=== PATIENT | female | born 1965 | race Caucasian/White ===

== ENCOUNTER 2022-05-31 03:23 | Inpatient (IN) | payer SELFPAY ==
[2022-05-31] MEDS ORDERED: hydrALAZINE 20 MG/ML VIAL SLOW IVP PRN (05:32)
[2022-05-31 05:44] VITALS: BMI 25.2
[2022-05-31] MEDS ORDERED: Ondansetron PF 4 MG/2 ML Vial IVP PRN (10:55)
[2022-05-31] MEDS ORDERED: Guaifenesin DM 100-10/5 ML UDCUP PO PRN (10:55)
[2022-05-31] MEDS ORDERED: Acetaminophen 325 MG TAB PO PRN (10:55)
[2022-05-31] MEDS ORDERED: Calcium Carbonate 500 MG ChewTAB PO PRN (10:55)
[2022-05-31] MEDS ORDERED: Bisacodyl 10 MG SUPP PR PRN (10:55)
[2022-05-31] MEDS: Sodium Chloride 0.9% 1,000 ML IV SCH (11:39)
[2022-05-31] MEDS ORDERED: Morphine 2 MG/ML VIAL SLOW IVP PRN (11:57)
[2022-05-31] MEDS ORDERED: Dicyclomine 20 MG TAB PO PRN (11:57)
[2022-05-31 15:06] LABS: Syphilis Antibody Nonreactive (Nonreactive); Syphilis Antibody Index 0.04 S/CO (<1.00 Non-Reactive)
[2022-05-31] MEDS ORDERED: GoLYTELY 4,000 ml Bottle PO SCH (15:30)
[2022-05-31 15:37] LABS: HIV (1/2) Antibody/Antigen Non-Reactive (NonReactive); HIV 1/2 INDEX 0.16 S/CO (<1.00); Hep B Surf Ag Non-Reactive S/CO (NonReactive)
[2022-05-31 16:11] LABS: HBCM Index 1.48 S/CO (0-0.79); Hep A IgM S/CO 0.85 S/CO (0-0.79); Hep C IgG Ab Reflex HepC Qnt (NonReactive); Hep C Index 3.32 S/CO (0-0.79); Hepatitis B Core IgM Abs Reactive (NonReactive)
[2022-05-31 16:12] LABS: Hep A IgM AB Equivocal (NonReactive)
[2022-05-31] MEDS: Nicotine 14 MG PATCH TOP SCH (17:35)
[2022-05-31 19:11] LABS: Amphetamine Detected (NotDetected); Barbiturates Screen Not Detected (NotDetected); Benzodiazepine Screen Detected (NotDetected); Cocaine Metabolite Screen Not Detected (NotDetected); Methadone Not Detected (NotDetected); Methamphetamine Detected (NotDetected); Opiate Screen Not Detected (NotDetected); Oxycodone Screen Not Detected (NotDetected); Phencyclidine (PCP) Not Detected (NotDetected); THC/Cannabinoid Screen Not Detected (NotDetected); Tricyclic Screen Not Detected (NotDetected)
[2022-05-31] MEDS: Senokot S 8.6-50 MG TAB PO SCH (21:22)
[2022-05-31] MEDS: Atorvastatin Calcium 40 MG TAB PO SCH (21:22)
[2022-06-01] MEDS ORDERED: Metoprolol Tartrate 5 MG/5 ML VIAL IVP PRN (00:49)
[2022-06-01 04:56] LABS: Anion Gap 12 mmol/L (10-20); BUN (Urea Nitrogen) 8 mg/dL (9.8-20.1); Calc. Creatinine Clearance 109 mL/min (70-130); Calcium 8.6 mg/dL (7.8-10.44); Carbon Dioxide 24 mmol/L (22-29); Chloride 107 mmol/L (98-107); Cholesterol 140 mg/dl (< 200 Desired); Estimated GFR 105; Glucose 82 mg/dL (70-105); HDL Cholesterol 47 mg/dL (>60 Neg Risk); Iron 22 ug/dL (50-170); Iron Binding Capacity, Total 414 mcg/dL (265-497); LDL Cholesterol, Calculated 76 mg/dL; Potassium 3.8 mmol/L (3.5-5.1); Sodium 139 mmol/L (136-145); Triglycerides 83 mg/dL (Less than 150)
[2022-06-01 05:28] LABS: #Eosinphils 0.5 thou/uL (0.0-0.7); #Lymphocytes 1.9 thou/uL (1.20-3.40); #Monocytes 0.5 thou/uL (0.11-0.59); %Basophils 0.5 % (0.0-1.0); %Eosinophils 9.1 % (0.0-10.0); %Lymphocytes 32.4 % (21.0-51.0); %Monocytes 7.5 % (0.0-10.0); %Neutrophils 50.5 % (42.0-75.0); Hemoglobin 10.2 g/dL (12.0-16.0); MDiff Complete? YES; Mean Corpuscular HGB CONC 31.4 g/dL (32.0-36.0); Mean Corpuscular Hemoglobin 21.8 pg (27.0-31.0); Mean Corpuscular Volume 69.6 fL (78.0-98.0); Mean Platelet Volume 10.8 fL (7.4-10.4); Microcytosis SLIGHT = 6-15 cells (100X) (0-5/hpf); Platelet Count 260 thou/uL (130-400); Platelet Morphology Comment Appears Adequate; RBC Distribution Width 15.2 % (11.5-14.5); Red Blood Cell (RBC) Count 4.66 mill/uL (4.20-5.40)
[2022-06-01] MEDS ORDERED: Labetalol HCl 100 MG/20 ML VIAL ONE ×2 (07:16→07:31)
[2022-06-01] MEDS ORDERED: PROPOFOL 200 MG/20 ML VIAL ONE (07:16)
[2022-06-01] MEDS ORDERED: Midazolam HCl 2 mg/2 ml Vial ONE (07:31)
[2022-06-01] MEDS ORDERED: hydrALAZINE 20 MG/ML VIAL ONE (07:31)
[2022-06-01] MEDS ORDERED: Fentanyl 100 MCG/2 ML VIAL ONE (08:00)
[2022-06-01] MEDS ORDERED: Promethazine HCl 25 MG/ML VIAL IVPB PRN (08:24)
[2022-06-01] MEDS ORDERED: Ondansetron HCl/PF 4 MG/2 ML Vial IVP PRN (08:24)
[2022-06-01] MEDS ORDERED: Promethazine HCl 25 MG/ML VIAL IM PRN (08:24)
[2022-06-01] MEDS: Senokot S 8.6-50 MG TAB PO SCH ×2 (10:45→20:23)
[2022-06-01] MEDS: Amlodipine 10 MG TAB PO SCH (10:45)
[2022-06-01] MEDS: Metoprolol Tartrate 25 MG TAB PO SCH ×2 (10:50→20:23)
[2022-06-01] MEDS: Enoxaparin Sodium 40 MG/0.4 ML SYRINGE SC SCH (10:50)
[2022-06-01] MEDS: Aspirin 81 mg Enteric Coated Tablet PO SCH (10:50)
[2022-06-01] MEDS: Sodium Chloride 0.9% 1,000 ML IV SCH ×2 (10:51→20:24)
[2022-06-01] MEDS: ALPRAZolam 1 MG TAB PO PRN (13:11)
[2022-06-01] MEDS: Nicotine 14 MG PATCH TOP SCH (13:11)
[2022-06-01 13:19] LABS: Campy jejuni + coli by PCR Negative (Negative); STEC Shiga Toxin 1+2 Negative (Negative); Salmonella spp. by PCR Negative (Negative); Shigella spp + EIEC by PCR Negative (Negative)
[2022-06-01] MEDS ORDERED: GoLYTELY 4,000 ml Bottle PO SCH (17:00)
[2022-06-01] MEDS: Atorvastatin Calcium 40 MG TAB PO SCH (20:23)
[2022-06-02] MEDS: ALPRAZolam 1 MG TAB PO PRN ×3 (05:22→20:13)
[2022-06-02] MEDS: Amlodipine 10 MG TAB PO SCH (08:32)
[2022-06-02] MEDS: Metoprolol Tartrate 25 MG TAB PO SCH ×2 (08:32→20:13)
[2022-06-02] MEDS: Enoxaparin Sodium 40 MG/0.4 ML SYRINGE SC SCH (08:34)
[2022-06-02] MEDS: Senokot S 8.6-50 MG TAB PO SCH ×2 (08:34→20:13)
[2022-06-02] MEDS: Aspirin 81 mg Enteric Coated Tablet PO SCH (08:34)
[2022-06-02] MEDS: Nicotine 14 MG PATCH TOP SCH (13:15)
[2022-06-02] MEDS: Sodium Chloride 0.9% 1,000 ML IV SCH (17:16)
[2022-06-02] MEDS: Atorvastatin Calcium 40 MG TAB PO SCH (20:13)
[2022-06-03 06:40] LABS: #Basophils 0.1 thou/uL (0.0-0.2); #Eosinphils 0.6 thou/uL (0.0-0.7); #Monocytes 0.6 thou/uL (0.11-0.59); #Neutrophils 3.4 thou/uL (1.40-6.50); %Basophils 0.9 % (0.0-1.0); %Eosinophils 8.6 % (0.0-10.0); %Lymphocytes 30.6 % (21.0-51.0); %Monocytes 8.6 % (0.0-10.0); %Neutrophils 51.3 % (42.0-75.0); Hemoglobin 10.9 g/dL (12.0-16.0); Mean Corpuscular HGB CONC 30.7 g/dL (32.0-36.0); Mean Corpuscular Hemoglobin 21.9 pg (27.0-31.0); Mean Corpuscular Volume 71.4 fL (78.0-98.0); Mean Platelet Volume 9.9 fL (7.4-10.4); Platelet Count 285 thou/uL (130-400); Red Blood Cell (RBC) Count 4.98 mill/uL (4.20-5.40); White Blood Cell (WBC) Count 6.5 thou/uL (4.8-10.8)
[2022-06-03 07:03] LABS: ALT (SGPT) 11 U/L (8-55); AST (SGOT) 11 U/L (5-34); Albumin 3.4 g/dL (3.5-5.0); Alkaline Phosphatase 83 U/L (40-110); Anion Gap 15 mmol/L (10-20); BUN (Urea Nitrogen) 7 mg/dL (9.8-20.1); Calc. Creatinine Clearance 103 mL/min (70-130); Calcium 8.8 mg/dL (7.8-10.44); Carbon Dioxide 21 mmol/L (22-29); Chloride 106 mmol/L (98-107); Estimated GFR 104; Globulin 3.3 g/dL (2.4-3.5); Glucose 83 mg/dL (70-105); Magnesium 1.9 mg/dL (1.6-2.6); Potassium 3.7 mmol/L (3.5-5.1); Protein, Total 6.7 g/dL (6.0-8.3); Sodium 138 mmol/L (136-145)
[2022-06-03] MEDS ORDERED: Lidocaine 1% PF 5 ML VIAL ONE (08:31)
[2022-06-03] MEDS ORDERED: Labetalol HCl 100 MG/20 ML VIAL ONE (08:31)
[2022-06-03] MEDS ORDERED: PROPOFOL 200 MG/20 ML VIAL ONE (08:31)
[2022-06-03] MEDS ORDERED: Ondansetron HCl/PF 4 MG/2 ML Vial IVP PRN (08:53)
[2022-06-03] MEDS ORDERED: Promethazine HCl 25 MG/ML VIAL IM PRN (08:53)
[2022-06-03] MEDS ORDERED: Promethazine HCl 25 MG/ML VIAL IVPB PRN (08:53)
[2022-06-03] MEDS: Enoxaparin Sodium 40 MG/0.4 ML SYRINGE SC SCH (10:00)
[2022-06-03] MEDS: Aspirin 81 mg Enteric Coated Tablet PO SCH (10:01)
[2022-06-03] MEDS: Senokot S 8.6-50 MG TAB PO SCH ×2 (10:01→21:23)
[2022-06-03] MEDS: Metoprolol Tartrate 25 MG TAB PO SCH ×2 (10:48→21:23)
[2022-06-03] MEDS: Amlodipine 10 MG TAB PO SCH (10:48)
[2022-06-03] MEDS: Nicotine 14 MG PATCH TOP SCH (13:26)
[2022-06-03] MEDS: ALPRAZolam 1 MG TAB PO PRN ×2 (13:31→21:22)
[2022-06-03] MEDS: Atorvastatin Calcium 40 MG TAB PO SCH (21:23)
[2022-06-04 06:57] LABS: #Basophils 0.1 thou/uL (0.0-0.2); #Eosinphils 0.5 thou/uL (0.0-0.7); #Lymphocytes 1.7 thou/uL (1.20-3.40); #Monocytes 0.6 thou/uL (0.11-0.59); #Neutrophils 3.3 thou/uL (1.40-6.50); %Basophils 1.1 % (0.0-1.0); %Eosinophils 8.1 % (0.0-10.0); %Lymphocytes 27.3 % (21.0-51.0); %Monocytes 9.5 % (0.0-10.0); %Neutrophils 53.9 % (42.0-75.0); Mean Corpuscular HGB CONC 31.6 g/dL (32.0-36.0); Mean Corpuscular Hemoglobin 22.4 pg (27.0-31.0); Mean Corpuscular Volume 70.9 fL (78.0-98.0); Mean Platelet Volume 9.9 fL (7.4-10.4); Platelet Count 238 thou/uL (130-400); RBC Distribution Width 14.7 % (11.5-14.5); Red Blood Cell (RBC) Count 4.44 mill/uL (4.20-5.40); White Blood Cell (WBC) Count 6.2 thou/uL (4.8-10.8)
[2022-06-04 07:23] LABS: Anion Gap 13 mmol/L (10-20); BUN (Urea Nitrogen) 12 mg/dL (9.8-20.1); Calc. Creatinine Clearance 107 mL/min (70-130); Calcium 8.3 mg/dL (7.8-10.44); Carbon Dioxide 24 mmol/L (22-29); Chloride 107 mmol/L (98-107); Estimated GFR 104; Glucose 140 mg/dL (70-105); Potassium 3.5 mmol/L (3.5-5.1); Sodium 140 mmol/L (136-145)
[2022-06-04] MEDS: Metoprolol Tartrate 25 MG TAB PO SCH (09:29)
[2022-06-04] MEDS: Enoxaparin Sodium 40 MG/0.4 ML SYRINGE SC SCH (09:29)
[2022-06-04] MEDS: Amlodipine 10 MG TAB PO SCH (09:29)
[2022-06-04] MEDS: Senokot S 8.6-50 MG TAB PO SCH (09:29)
[2022-06-04] MEDS: Aspirin 81 mg Enteric Coated Tablet PO SCH (09:29)
[2022-06-04] MEDS: Nicotine 14 MG PATCH TOP SCH (12:29)
[2022-06-04 16:48] VITALS: BP 144/82; TEMP 98.3
== END 2022-06-04 17:00 | disposition home or self-care (01) | DRG 375 ==
LOC: 2NO 06:14 → OBSVTOIN 10:55 → T4-B 06-01 21:21
PROVIDERS: ADMIT Internal Medicine; ATTEND Internal Medicine
PROC: 0DJ08ZZ Inspection of Upper Intestinal Tract, Via Natural or Artificial Opening Endoscopic (ICD-10-PCS; principal; 2022-06-01)
PROC: 0DBP8ZX Excision of Rectum, Via Natural or Artificial Opening Endoscopic, Diagnostic (ICD-10-PCS; 2022-06-01)
DX: C20 Malignant neoplasm of rectum (principal); I16.1 Hypertensive emergency; G45.9 Transient cerebral ischemic attack, unspecified; Z20.822 Contact with and (suspected) exposure to COVID-19; I10 Essential (primary) hypertension; F41.9 Anxiety disorder, unspecified; D50.9 Iron deficiency anemia, unspecified; F17.210 Nicotine dependence, cigarettes, uncomplicated; K63.5 Polyp of colon; Z98.890 Other specified postprocedural states; Z88.0 Allergy status to penicillin; Z88.1 Allergy status to other antibiotic agents; Z86.73 Personal history of transient ischemic attack (TIA), and cerebral infarction without residual deficits; Z88.2 Allergy status to sulfonamides; B18.2 Chronic viral hepatitis C
CPT/HCPCS: 36415; 70551; 71250; 80048; 80053; 80061; 80074; 80306; 82378; 83540; 83550; 83735; 85025; 86780; 87324; 87389; 87449; 87505; 87522; 88305; 93306; 93880; J0360; J1650; J2250; J2704; J3010; J7050; U0003; U0005

== ENCOUNTER 2022-06-19 21:15 | Emergency (ER) | payer SELFPAY ==
[2022-06-19 22:37] LABS: #Eosinphils 1.1 thou/uL (0.0-0.7); #Lymphocytes 0.6 thou/uL (1.20-3.40); #Monocytes 0.7 thou/uL (0.11-0.59); #Neutrophils 5.7 thou/uL (1.40-6.50); %Basophils 0.5 % (0.0-1.0); %Eosinophils 13.5 % (0.0-10.0); %Lymphocytes 7.4 % (21.0-51.0); %Monocytes 8.3 % (0.0-10.0); %Neutrophils 70.3 % (42.0-75.0); Mean Corpuscular HGB CONC 32.9 g/dL (32.0-36.0); Mean Corpuscular Hemoglobin 22.8 pg (27.0-31.0); Mean Corpuscular Volume 69.2 fL (78.0-98.0); Mean Platelet Volume 11.4 fL (7.4-10.4); Platelet Count 268 thou/uL (130-400); RBC Distribution Width 15.4 % (11.5-14.5); Red Blood Cell (RBC) Count 4.83 mill/uL (4.20-5.40); White Blood Cell (WBC) Count 8.2 thou/uL (4.8-10.8)
[2022-06-19] MEDS ORDERED: Acetaminophen 325 MG TAB ONE (22:37)
[2022-06-19 22:57] LABS: ALT (SGPT) 219 U/L (8-55); AST (SGOT) 113 U/L (5-34); Albumin 3.7 g/dL (3.5-5.0); Alkaline Phosphatase 285 U/L (40-110); Anion Gap 18 mmol/L (10-20); BUN (Urea Nitrogen) 15 mg/dL (9.8-20.1); Bilirubin, Total 2.5 mg/dL (0.2-1.2); Calc. Creatinine Clearance 0 mL/min (70-130); Calcium 9.1 mg/dL (7.8-10.44); Carbon Dioxide 20 mmol/L (22-29); Chloride 104 mmol/L (98-107); Estimated GFR 88; Globulin 4.1 g/dL (2.4-3.5); Glucose 117 mg/dL (70-105); Lipase 45 U/L (8-78); Potassium 4.2 mmol/L (3.5-5.1); Protein, Total 7.8 g/dL (6.0-8.3); Sodium 138 mmol/L (136-145)
[2022-06-19] MEDS ORDERED: Cefepime 2 GM VIAL ONE (23:18)
[2022-06-20 01:24] LABS: Bacteria/HPF 2+ HPF (None Seen); Bilirubin 2+ (Negative); Blood, Urine 1+ (Negative); Clarity Turbid (Clear); Glucose, Urine (Dipstick) Normal (Negative); Ketone, Urine Negative (Negative); Leukocyte 75 Leu/uL (Negative); Nitrite 2+ (Negative); Protein, Urine (Dipstick) 50 mg/dL (Neg-Trace); RBC/HPF 0-3 HPF (0-3); Specific Gravity, Urine 1.031 (1.002-1.036); Squamous Epithelial 21-50 HPF (0-3); Urobilinogen 3 mg/dL (Less than 2)
[2022-06-20 01:34] LABS: SARS-CoV-2 NAA Rapid Test Not Detected (NotDetected)
== END 2022-06-20 02:18 | disposition home or self-care (01) ==
LOC: ERS 21:15
DX: N39.0 Urinary tract infection, site not specified (principal); I10 Essential (primary) hypertension; F17.210 Nicotine dependence, cigarettes, uncomplicated; Z20.822 Contact with and (suspected) exposure to COVID-19
CPT/HCPCS: 36415; 71045; 80053; 81003; 81015; 83605; 83690; 84484; 85025; 87040; 87086; 93005; 96374; J0692

== ENCOUNTER 2022-07-04 16:37 | Inpatient (IN) | payer BC ==
[2022-07-04 17:13] LABS: #Basophils 0.1 thou/uL (0.0-0.2); #Eosinphils 0.6 thou/uL (0.0-0.7); #Lymphocytes 1.9 thou/uL (1.20-3.40); #Monocytes 0.6 thou/uL (0.11-0.59); %Basophils 1.7 % (0.0-1.0); %Eosinophils 8.3 % (0.0-10.0); %Lymphocytes 26.5 % (21.0-51.0); %Monocytes 8.7 % (0.0-10.0); Hemoglobin 9.4 g/dL (12.0-16.0); Mean Corpuscular HGB CONC 30.1 g/dL (32.0-36.0); Mean Corpuscular Hemoglobin 21.3 pg (27.0-31.0); Mean Corpuscular Volume 70.7 fL (78.0-98.0); Mean Platelet Volume 10.1 fL (7.4-10.4); Platelet Count 414 thou/uL (130-400); RBC Distribution Width 15.5 % (11.5-14.5); Red Blood Cell (RBC) Count 4.42 mill/uL (4.20-5.40); White Blood Cell (WBC) Count 7.2 thou/uL (4.8-10.8)
[2022-07-04 17:42] LABS: ALT (SGPT) 46 U/L (8-55); AST (SGOT) 63 U/L (5-34); Albumin 3.5 g/dL (3.5-5.0); Alkaline Phosphatase 223 U/L (40-110); Anion Gap 14 mmol/L (10-20); BUN (Urea Nitrogen) 15 mg/dL (9.8-20.1); Bilirubin, Total 0.8 mg/dL (0.2-1.2); Calc. Creatinine Clearance 0 mL/min (70-130); Calcium 8.8 mg/dL (7.8-10.44); Carbon Dioxide 23 mmol/L (22-29); Chloride 104 mmol/L (98-107); Estimated GFR 103; Globulin 3.8 g/dL (2.4-3.5); Glucose 111 mg/dL (70-105); Lipase 23 U/L (8-78); Protein, Total 7.3 g/dL (6.0-8.3); Sodium 137 mmol/L (136-145)
[2022-07-04 23:16] VITALS: BMI 25.9
[2022-07-04 23:21] LABS: SARS-CoV-2 NAA Rapid Test Not Detected (NotDetected)
[2022-07-04] MEDS ORDERED: Nicotine 14 MG PATCH TD PRN (23:45)
[2022-07-04] MEDS ORDERED: Ondansetron PF 4 MG/2 ML Vial IVP PRN (23:45)
[2022-07-04] MEDS ORDERED: Ondansetron ODT 4 MG TAB PO PRN (23:45)
[2022-07-04] MEDS ORDERED: Acetaminophen 325 MG TAB PO PRN (23:45)
[2022-07-04] MEDS ORDERED: hydrALAZINE 20 MG/ML VIAL SLOW IVP PRN (23:47)
[2022-07-04] MEDS ORDERED: Pantoprazole 40 MG VIAL IVP SCH (23:59)
[2022-07-05 00:08] LABS: Hemoglobin 8.2 g/dL (12.0-16.0); Platelet Count 344 thou/uL (130-400)
[2022-07-05] MEDS: Sodium Chloride 0.9% 1,000 ML IV SCH ×3 (00:15→18:46)
[2022-07-05 05:31] LABS: #Basophils 0.1 thou/uL (0.0-0.2); #Eosinphils 0.5 thou/uL (0.0-0.7); #Lymphocytes 1.6 thou/uL (1.20-3.40); #Monocytes 0.5 thou/uL (0.11-0.59); #Neutrophils 3.5 thou/uL (1.40-6.50); %Basophils 0.9 % (0.0-1.0); %Eosinophils 8.2 % (0.0-10.0); %Lymphocytes 25.7 % (21.0-51.0); %Monocytes 8.2 % (0.0-10.0); %Neutrophils 56.9 % (42.0-75.0); Hemoglobin 8.2 g/dL (12.0-16.0); Mean Corpuscular HGB CONC 31.1 g/dL (32.0-36.0); Mean Corpuscular Hemoglobin 21.9 pg (27.0-31.0); Mean Corpuscular Volume 70.5 fL (78.0-98.0); Platelet Count 318 thou/uL (130-400); RBC Distribution Width 15.2 % (11.5-14.5); Red Blood Cell (RBC) Count 3.73 mill/uL (4.20-5.40); White Blood Cell (WBC) Count 6.2 thou/uL (4.8-10.8)
[2022-07-05 05:56] LABS: ALT (SGPT) 43 U/L (8-55); AST (SGOT) 61 U/L (5-34); Albumin 3.2 g/dL (3.5-5.0); Alkaline Phosphatase 199 U/L (40-110); Anion Gap 11 mmol/L (10-20); BUN (Urea Nitrogen) 12 mg/dL (9.8-20.1); Calc. Creatinine Clearance 113 mL/min (70-130); Calcium 8.7 mg/dL (7.8-10.44); Carbon Dioxide 23 mmol/L (22-29); Chloride 106 mmol/L (98-107); Estimated GFR 105; Globulin 3.5 g/dL (2.4-3.5); Glucose 93 mg/dL (70-105); Protein, Total 6.7 g/dL (6.0-8.3); Sodium 136 mmol/L (136-145)
[2022-07-05] MEDS: Pantoprazole 40 MG VIAL IVP SCH ×2 (09:56→21:19)
[2022-07-05] MEDS: HYDROcodone/Acetaminophen 10/325 mg Tablet PO PRN ×3 (10:27→21:17)
[2022-07-05] MEDS ORDERED: Magnevist 469MG/ML 20 ML VIAL ONE (14:57)
[2022-07-05] MEDS ORDERED: ALPRAZolam 0.25 MG TAB PO PRN (15:42)
[2022-07-05] MEDS: Ferrous Sulfate 325 MG TAB PO SCH (18:08)
[2022-07-05] MEDS: Morphine 2 MG/ML VIAL SLOW IVP PRN (18:44)
[2022-07-05 20:40] LABS: Amphetamine Not Detected (NotDetected); Barbiturates Screen Not Detected (NotDetected); Benzodiazepine Screen Not Detected (NotDetected); Cocaine Metabolite Screen Not Detected (NotDetected); Methadone Not Detected (NotDetected); Methamphetamine Not Detected (NotDetected); Opiate Screen Detected (NotDetected); Oxycodone Screen Not Detected (NotDetected); Phencyclidine (PCP) Not Detected (NotDetected); THC/Cannabinoid Screen Not Detected (NotDetected); Tricyclic Screen Not Detected (NotDetected)
[2022-07-05] MEDS: Senokot S 8.6-50 MG TAB PO SCH (21:19)
[2022-07-05] MEDS: Metoprolol Tartrate 25 MG TAB PO SCH (21:19)
[2022-07-06] MEDS: Morphine 2 MG/ML VIAL SLOW IVP PRN ×2 (00:20→06:10)
[2022-07-06] MEDS: HYDROcodone/Acetaminophen 10/325 mg Tablet PO PRN (01:40)
[2022-07-06] MEDS: Sodium Chloride 0.9% 1,000 ML IV SCH ×2 (06:12→07:49)
[2022-07-06 08:40] VITALS: BP 161/98; TEMP 97.7
[2022-07-06] MEDS ORDERED: Amlodipine 10 MG TAB PO SCH (09:00)
[2022-07-06] MEDS ORDERED: DULoxetine 30 MG CAP PO SCH (09:00)
[2022-07-06] MEDS ORDERED: Polyethylene Glycol 3350 17 GM Packet PO SCH (09:00)
[2022-07-06 09:21] LABS: Hemoglobin 8.2 g/dL (12.0-16.0); Mean Corpuscular HGB CONC 29.3 g/dL (32.0-36.0); Mean Corpuscular Hemoglobin 21.5 pg (27.0-31.0); Mean Corpuscular Volume 73.4 fL (78.0-98.0); Mean Platelet Volume 10.9 fL (7.4-10.4); Platelet Count 240 thou/uL (130-400); RBC Distribution Width 15.5 % (11.5-14.5); Red Blood Cell (RBC) Count 3.84 mill/uL (4.20-5.40); White Blood Cell (WBC) Count 5.4 thou/uL (4.8-10.8)
[2022-07-06 09:22] LABS: #Basophils 0.1 thou/uL (0.0-0.2); #Eosinphils 0.5 thou/uL (0.0-0.7); #Lymphocytes 1.9 thou/uL (1.20-3.40); #Monocytes 0.5 thou/uL (0.11-0.59); #Neutrophils 2.5 thou/uL (1.40-6.50); %Basophils 1.3 % (0.0-1.0); %Eosinophils 8.8 % (0.0-10.0); %Lymphocytes 35.2 % (21.0-51.0); %Monocytes 9.2 % (0.0-10.0); %Neutrophils 45.5 % (42.0-75.0)
[2022-07-06] MEDS: Metoprolol Tartrate 25 MG TAB PO SCH (09:31)
[2022-07-06] MEDS: Ferrous Sulfate 325 MG TAB PO SCH (09:32)
[2022-07-06] MEDS: Senokot S 8.6-50 MG TAB PO SCH (09:32)
[2022-07-06 09:39] LABS: ALT (SGPT) 42 U/L (8-55); AST (SGOT) 43 U/L (5-34); Albumin 3.1 g/dL (3.5-5.0); Alkaline Phosphatase 199 U/L (40-110); Anion Gap 15 mmol/L (10-20); BUN (Urea Nitrogen) 9 mg/dL (9.8-20.1); Bilirubin, Total 0.5 mg/dL (0.2-1.2); Calc. Creatinine Clearance 111 mL/min (70-130); Calcium 8.7 mg/dL (7.8-10.44); Carbon Dioxide 16 mmol/L (22-29); Chloride 109 mmol/L (98-107); Estimated GFR 105; Globulin 3.5 g/dL (2.4-3.5); Glucose 89 mg/dL (70-105); Potassium 4.2 mmol/L (3.5-5.1); Protein, Total 6.6 g/dL (6.0-8.3); Sodium 136 mmol/L (136-145)
[2022-07-06 11:15] LABS: Hypochromia SLIGHT = 6-15 cells (100X) (0-5/hpf); MDiff Complete? YES; Microcytosis MODERATE=15-30 cells (100X) (0-5/hpf); Ovalocytes SLIGHT = 2-5 cells (100X) (0-1/hpf); Platelet Morphology Comment Appears Adequate; Polychromasia SLIGHT = 2-3 cells (100X) (0-2/hpf)
== END 2022-07-06 11:35 | disposition home or self-care (01) | DRG 375 ==
LOC: ERS 16:37 → MSONC 21:18
PROVIDERS: ADMIT Internal Medicine; ATTEND Internal Medicine
DX: C20 Malignant neoplasm of rectum (principal); K62.5 Hemorrhage of anus and rectum; Z20.822 Contact with and (suspected) exposure to COVID-19; I10 Essential (primary) hypertension; F41.9 Anxiety disorder, unspecified; F17.210 Nicotine dependence, cigarettes, uncomplicated; E78.5 Hyperlipidemia, unspecified; D50.0 Iron deficiency anemia secondary to blood loss (chronic); Z79.899 Other long term (current) drug therapy; Z88.0 Allergy status to penicillin; Z88.2 Allergy status to sulfonamides; Z88.1 Allergy status to other antibiotic agents
CPT/HCPCS: 36415; 72197; 74019; 80053; 80306; 83690; 85025; 86850; 86900; 86901; 99285; A9579; C9113; J2270; J7050; U0002

== ENCOUNTER 2022-09-13 23:13 | Emergency (ER) | payer BC ==
[2022-09-14] LABS: Hemoglobin 8.5 g/dL (12.0-16.0); Mean Corpuscular Volume 82.8 fl (78.0-98.0); Red Blood Cell (RBC) Count 3.13 mill/uL (4.20-5.40); White Blood Cell (WBC) Count 3.7 10x3/uL (4.8-10.8)
[2022-09-14 00:18] LABS: ALT (SGPT) 36 U/L (8-55); AST (SGOT) 19 U/L (5-34); Albumin 3.2 g/dL (3.5-5.0); Alkaline Phosphatase 90 U/L (40-110); Anion Gap 12 mmol/L (10-20); BUN (Urea Nitrogen) 15 mg/dL (9.8-20.1); Bilirubin, Total 0.8 mg/dL (0.2-1.2); Calc. Creatinine Clearance 0 mL/min (70-130); Calcium 8.1 mg/dL (7.8-10.44); Carbon Dioxide 22 mmol/L (22-29); Chloride 106 mmol/L (98-107); Estimated GFR 107; Globulin 3.2 g/dL (2.4-3.5); Glucose 80 mg/dL (70-105); Lipase 30 U/L (8-78); Magnesium 1.6 mg/dL (1.6-2.6); Potassium 2.9 mmol/L (3.5-5.1); Protein, Total 6.4 g/dL (6.0-8.3); Sodium 137 mmol/L (136-145)
[2022-09-14 00:21] LABS: #Eosinphils 0.2 thou/uL (0.0-0.7); #Lymphocytes 0.3 thou/uL (1.20-3.40); #Monocytes 0.5 thou/uL (0.11-0.59); #Neutrophils 2.6 thou/uL (1.40-6.50); %Basophils 0.5 % (0.0-1.0); %Eosinophils 4.8 % (0.0-10.0); %Lymphocytes 8.8 % (21.0-51.0); %Monocytes 14.6 % (0.0-10.0); %Neutrophils 71.4 % (42.0-75.0); Anisocytosis MARKED = >30 cells (100X) (0-5/hpf); Burr Cells SLIGHT = 2-5 cells (100X) (0-1/hpf); MDiff Complete? YES; Mean Corpuscular HGB CONC 32.8 g/dL (32.0-36.0); Mean Corpuscular Hemoglobin 27.1 pg (27.0-31.0); Platelet Count 156 10x3/uL (130-400); Platelet Morphology Comment Appears Adequate; Tear Drops SLIGHT = 2-5 cells (100X) (0-1/hpf)
[2022-09-14] MEDS ORDERED: Pot Chloride/Pot Bicarb/Cit Ac 25 mEq Effervescent Tablet ONE (00:37)
[2022-09-14] MEDS ORDERED: Lorazepam 1 MG TAB ONE (00:37)
[2022-09-14] MEDS ORDERED: Iopamidol-370 76% 500 ML 1 ML ONE (10:28)
== END 2022-09-14 02:05 | disposition home or self-care (01) ==
LOC: ERS 23:13
DX: K52.0 Gastroenteritis and colitis due to radiation (principal); E87.6 Hypokalemia; I10 Essential (primary) hypertension; F17.210 Nicotine dependence, cigarettes, uncomplicated; Y63.3 Inadvertent exposure of patient to radiation during medical care
CPT/HCPCS: 74177; 80053; 83690; 83735; 85025

== ENCOUNTER 2022-12-14 11:37 | Outpatient (CLI) | payer BC ==
[2022-12-14] MEDS ORDERED: Iopamidol 370 76% 100 ML VIAL ONE (12:29)
== END 2022-12-14 11:38 | disposition home or self-care (01) ==
LOC: CT 11:37
PROVIDERS: ATTEND Internal Medicine
DX: C20 Malignant neoplasm of rectum (principal); K62.89 Other specified diseases of anus and rectum; K63.89 Other specified diseases of intestine; E27.8 Other specified disorders of adrenal gland; R60.0 Localized edema; Z93.3 Colostomy status
CPT/HCPCS: 74177; Q9967

== ENCOUNTER 2023-05-30 10:19 | Outpatient (CLI) | payer OTHER ==
[2023-05-30 11:02] LABS: #Basophils 0.1 10x3/uL (0.0-0.2); #Eosinphils 0.3 10x3/uL (0.0-0.5); #Monocytes 0.4 10x3/uL (0.0-1.1); %Basophils 1.2 % (0.0-2.0); %Eosinophils 7.5 % (0.0-6.0); %Lymphocytes 12.7 % (18.0-47.0); %Monocytes 8.5 % (0.0-10.0); %Neutrophils 69.6 % (40.0-75.0); Hematocrit 42.1 % (34.9-44.5); Hemoglobin 13.2 g/dL (12.0-15.5); Mean Corpuscular HGB CONC 31.4 g/dL (32.0-36.0); Mean Corpuscular Hemoglobin 28.3 pg (27.0-33.0); Mean Corpuscular Volume 90.3 fl (81.6-98.3); Mean Platelet Volume 11.6 fl (7.4-10.4); Platelet Count 191 10x3/uL (150-450); RBC Distribution Width 13.3 % (11.5-14.5); Red Blood Cell (RBC) Count 4.66 10x6/uL (3.90-5.03); White Blood Cell (WBC) Count 4.3 10x3/uL (3.5-10.5)
[2023-05-30 11:45] LABS: Anion Gap 17 mmol/L (10-20); BUN (Urea Nitrogen) 16 mg/dL (9.8-20.1); Calc. Creatinine Clearance 0 mL/min (70-130); Calcium 8.9 mg/dL (7.8-10.44); Carbon Dioxide 20 mmol/L (22-29); Chloride 108 mmol/L (98-107); Estimated GFR 102; Glucose 104 mg/dL (70-105); Potassium 4.6 mmol/L (3.5-5.1); Sodium 140 mmol/L (136-145)
== END 2023-05-30 10:20 | disposition home or self-care (01) ==
LOC: LABBT 10:19
PROVIDERS: ATTEND Surgery
DX: Z01.818 Encounter for other preprocedural examination (principal); C20 Malignant neoplasm of rectum
CPT/HCPCS: 80048; 85025; 93005; 93010

== ENCOUNTER 2023-05-30 10:30 | Inpatient (IN) | payer OTHER ==
[2023-05-30 10:52] VITALS: BMI 29.2
[2023-06-04] MEDS ORDERED: Propofol 500 MG/50 ML VIAL ONE (06:45)
[2023-06-04] MEDS ORDERED: SUGAMMADEX SODIUM 200 MG/2 ML VIAL ONE (06:45)
[2023-06-04] MEDS ORDERED: Dexmedetomidine 200 MCG/2 ML VIAL ONE (06:45)
[2023-06-04] MEDS ORDERED: fentaNYL PF 100 MCG/2 ML SYRINGE ONE (06:45)
[2023-06-04] MEDS ORDERED: Ketamine 50 MG/ML (10ML VIAL) ONE (06:45)
[2023-06-04] MEDS ORDERED: Bupivacaine PF 0.5% 30 ML VIAL ONE (06:54)
[2023-06-04] MEDS ORDERED: Midazolam HCl 2 mg/2 ml Vial ONE ×2 (06:54→14:40)
[2023-06-04] MEDS ORDERED: fentaNYL 50 mcg/mL 1 mL Vial ONE ×6 (06:54→13:30)
[2023-06-04] MEDS ORDERED: LevoFLOXacin 500 mg/D5W 100 ML BAG ONE (07:29)
[2023-06-04] MEDS ORDERED: Bupivacaine HCl 0.5%/Epinephrine 1:200,000/PF 30 ml Vial ONE (07:51)
[2023-06-04] MEDS ORDERED: PROPOFOL 200 MG/20 ML VIAL ONE (07:51)
[2023-06-04] MEDS ORDERED: Glycopyrrolate 0.2 MG/ML 5 ML SYRINGE ONE (07:51)
[2023-06-04] MEDS ORDERED: Ondansetron PF 4 MG/2 ML Vial ONE (07:51)
[2023-06-04] MEDS ORDERED: Rocuronium Bromide 10 MG/ML (10ML VIAL) ONE (07:51)
[2023-06-04] MEDS ORDERED: Lidocaine 1% PF 5 ML VIAL ONE (07:51)
[2023-06-04] MEDS ORDERED: NEOSTIGMINE 3 MG/3 ML SYR 3 MG/3 ML SYRINGE ONE (07:51)
[2023-06-04] MEDS ORDERED: Ropivacaine 2% HCl/PF (20 MG/10 ML VIAL) ONE (07:51)
[2023-06-04] MEDS ORDERED: PHENYLEPHRINE-NS 100 MCG/ML 10 ML SYRINGE ONE (07:51)
[2023-06-04] MEDS ORDERED: ePHEDrine Sulfate 50 MG/10 ML VIAL ONE (07:51)
[2023-06-04] MEDS ORDERED: Dexamethasone 20 MG/5 ML VIAL ONE (07:51)
[2023-06-04] MEDS ORDERED: Phenylephrine 10 MG/ML VIAL ONE (08:05)
[2023-06-04] MEDS ORDERED: Vasopressin 20 UNITS/ML VIAL ONE (08:05)
[2023-06-04] MEDS ORDERED: Ondansetron HCl/PF 4 MG/2 ML Vial IVP PRN (10:57)
[2023-06-04] MEDS ORDERED: Promethazine HCl 25 MG/ML VIAL IM PRN ×3 (10:57→14:28)
[2023-06-04] MEDS ORDERED: Ondansetron PF 4 MG/2 ML Vial IVP PRN ×2 (13:05→14:28)
[2023-06-04] MEDS ORDERED: hydrALAZINE 20 MG/ML VIAL SLOW IVP PRN (13:05)
[2023-06-04] MEDS ORDERED: Ipratropium/Albuterol 3 ML NEB NEB PRN (13:05)
[2023-06-04] MEDS ORDERED: HYDROmorphone 0.5 MG/0.5 ML SYRINGE ONE (14:24)
[2023-06-04] MEDS ORDERED: Naloxone HCl 0.4 mg/ml Vial IV PRN (14:28)
[2023-06-04] MEDS ORDERED: diphenhydrAMINE 50 MG/ML VIAL IM PRN (14:28)
[2023-06-04] MEDS ORDERED: HYDROmorphone 10 mg/100 ml CADD IVPB PRN (14:28)
[2023-06-04] MEDS ORDERED: diphenhydrAMINE 50 MG/ML VIAL IVP PRN (14:28)
[2023-06-04] MEDS ORDERED: diphenhydrAMINE 25 MG CAP PO PRN (14:28)
[2023-06-04] MEDS ORDERED: ACTIVE PCA FS PRN (14:30)
[2023-06-04] MEDS ORDERED: Ketorolac Tromethamine 30 MG/ML VIAL IVP PRN (14:30)
[2023-06-04] MEDS ORDERED: fentaNYL 50 mcg/mL 1 mL Vial SLOW IVP PRN (14:41)
[2023-06-04] MEDS ORDERED: HYDROmorphone/PF 10 MG in Sodium Chloride 0.9% 99 ML IVPB PRN (14:45)
[2023-06-04] MEDS ORDERED: D5 1/2 NS w/20 mEq KCL 1,000 ML ONE (16:08)
[2023-06-04] MEDS ORDERED: HYDROcodone/Acetaminophen 7.5/325 mg Tablet PO PRN ×2 (16:30)
[2023-06-04] MEDS: D5 1/2 NS w/20 mEq KCL 1,000 ML IV SCH (17:03)
[2023-06-04] MEDS: Famotidine/PF 20 mg/2ml Vial SLOW IVP SCH (20:11)
[2023-06-04] MEDS: Famotidine 20 MG TAB PO SCH (20:11)
[2023-06-04] MEDS: Amlodipine 10 MG TAB PO SCH (22:46)
[2023-06-04] MEDS: Metoprolol Tartrate 25 MG TAB PO SCH (22:47)
[2023-06-05] MEDS: D5 1/2 NS w/20 mEq KCL 1,000 ML IV SCH ×3 (00:59→16:42)
[2023-06-05 04:29] LABS: #Monocytes 0.7 thou/uL (0.11-0.59); #Neutrophils 6.4 thou/uL (1.40-6.50); %Basophils 0.3 % (0.0-1.0); %Monocytes 8.9 % (0.0-10.0); %Neutrophils 83.4 % (42.0-75.0); Hematocrit 35.6 % (36.0-47.0); Hemoglobin 11.7 g/dL (12.0-16.0); Mean Corpuscular HGB CONC 32.9 g/dL (32.0-36.0); Mean Corpuscular Hemoglobin 28.3 pg (27.0-31.0); Mean Corpuscular Volume 86.2 fl (78.0-98.0); Mean Platelet Volume 10.5 fL (7.4-10.4); Platelet Count 199 10x3/uL (130-400); RBC Distribution Width 13.3 % (11.5-14.5); Red Blood Cell (RBC) Count 4.13 mill/uL (4.20-5.40); White Blood Cell (WBC) Count 7.7 10x3/uL (4.8-10.8)
[2023-06-05 05:15] LABS: Anion Gap 14 mmol/L (10-20); BUN (Urea Nitrogen) 12 mg/dL (9.8-20.1); Calc. Creatinine Clearance 109 mL/min (70-130); Calcium 8.8 mg/dL (7.8-10.44); Carbon Dioxide 20 mmol/L (22-29); Chloride 105 mmol/L (98-107); Estimated GFR 102; Glucose 122 mg/dL (70-105); Sodium 135 mmol/L (136-145)
[2023-06-05] MEDS ORDERED: LevoFLOXacin 500 mg/D5W 500 MG in Premix Bag 1 BAG IVPB SCH (08:00)
[2023-06-05] MEDS: Famotidine 20 MG TAB PO SCH ×2 (08:11→21:36)
[2023-06-05] MEDS: Famotidine/PF 20 mg/2ml Vial SLOW IVP SCH ×2 (08:12→21:37)
[2023-06-05] MEDS ORDERED: HYDROcodone/Acetaminophen 7.5/325 mg Tablet PO PRN ×2 (12:15)
[2023-06-05] MEDS: Amlodipine 10 MG TAB PO SCH (21:36)
[2023-06-05] MEDS: Metoprolol Tartrate 25 MG TAB PO SCH (21:36)
[2023-06-06] MEDS: D5 1/2 NS w/20 mEq KCL 1,000 ML IV SCH ×4 (02:21→22:10)
[2023-06-06 06:18] LABS: #Eosinphils 0.1 thou/uL (0.0-0.7); #Monocytes 0.4 thou/uL (0.11-0.59); %Basophils 0.5 % (0.0-1.0); %Eosinophils 2.6 % (0.0-10.0); %Lymphocytes 11.2 % (21.0-51.0); %Monocytes 9.9 % (0.0-10.0); %Neutrophils 75.3 % (42.0-75.0); Hematocrit 33.3 % (36.0-47.0); Hemoglobin 10.5 g/dL (12.0-16.0); Mean Corpuscular HGB CONC 31.5 g/dL (32.0-36.0); Mean Corpuscular Hemoglobin 28.1 pg (27.0-31.0); Mean Platelet Volume 10.5 fL (7.4-10.4); Platelet Count 161 10x3/uL (130-400); RBC Distribution Width 13.7 % (11.5-14.5); Red Blood Cell (RBC) Count 3.74 mill/uL (4.20-5.40); White Blood Cell (WBC) Count 3.9 10x3/uL (4.8-10.8)
[2023-06-06 06:42] LABS: Anion Gap 10 mmol/L (10-20); BUN (Urea Nitrogen) 12 mg/dL (9.8-20.1); Calc. Creatinine Clearance 100 mL/min (70-130); Calcium 8.4 mg/dL (7.8-10.44); Carbon Dioxide 25 mmol/L (22-29); Chloride 102 mmol/L (98-107); Estimated GFR 96; Glucose 104 mg/dL (70-105); Potassium 4.4 mmol/L (3.5-5.1); Sodium 133 mmol/L (136-145)
[2023-06-06] MEDS: Famotidine 20 MG TAB PO SCH ×2 (08:40→20:08)
[2023-06-06] MEDS: Famotidine/PF 20 mg/2ml Vial SLOW IVP SCH ×2 (10:40→21:53)
[2023-06-06] MEDS: Acetaminophen 500 MG TAB PO SCH ×3 (13:49→22:08)
[2023-06-06] MEDS ORDERED: oxyCODONE 5 MG TAB PO PRN (14:17)
[2023-06-06] MEDS ORDERED: fentaNYL 50 mcg/mL 1 mL Vial SLOW IVP PRN (14:20)
[2023-06-06] MEDS: oxyCODONE 5 MG TAB PO PRN ×2 (16:56→20:08)
[2023-06-06] MEDS: Metoprolol Tartrate 25 MG TAB PO SCH (20:08)
[2023-06-06] MEDS: Amlodipine 10 MG TAB PO SCH (20:08)
[2023-06-07] MEDS: Acetaminophen 500 MG TAB PO SCH ×2 (05:28→12:40)
[2023-06-07 07:41] LABS: #Eosinphils 0.3 thou/uL (0.0-0.7); #Monocytes 0.4 thou/uL (0.11-0.59); #Neutrophils 3.3 thou/uL (1.40-6.50); %Basophils 0.2 % (0.0-1.0); %Eosinophils 5.9 % (0.0-10.0); %Lymphocytes 8.5 % (21.0-51.0); %Monocytes 8.3 % (0.0-10.0); %Neutrophils 76.6 % (42.0-75.0); Hematocrit 33.2 % (36.0-47.0); Mean Corpuscular HGB CONC 33.1 g/dL (32.0-36.0); Mean Corpuscular Hemoglobin 28.4 pg (27.0-31.0); Mean Corpuscular Volume 85.8 fl (78.0-98.0); Mean Platelet Volume 10.5 fL (7.4-10.4); Platelet Count 160 10x3/uL (130-400); RBC Distribution Width 13.5 % (11.5-14.5); Red Blood Cell (RBC) Count 3.87 mill/uL (4.20-5.40); White Blood Cell (WBC) Count 4.2 10x3/uL (4.8-10.8)
[2023-06-07 08:02] LABS: Anion Gap 13 mmol/L (10-20); BUN (Urea Nitrogen) 7 mg/dL (9.8-20.1); Calc. Creatinine Clearance 129 mL/min (70-130); Calcium 8.5 mg/dL (7.8-10.44); Carbon Dioxide 23 mmol/L (22-29); Chloride 107 mmol/L (98-107); Estimated GFR 106; Glucose 109 mg/dL (70-105); Potassium 3.9 mmol/L (3.5-5.1); Sodium 139 mmol/L (136-145)
[2023-06-07] MEDS: Famotidine 20 MG TAB PO SCH ×2 (08:05→21:12)
[2023-06-07] MEDS: oxyCODONE 5 MG TAB PO PRN ×2 (08:05→12:37)
[2023-06-07] MEDS: Famotidine/PF 20 mg/2ml Vial SLOW IVP SCH ×2 (09:18→21:19)
[2023-06-07] MEDS ORDERED: HYDROcodone/Acetaminophen 7.5/325 mg Tablet PO PRN ×2 (13:37)
[2023-06-07] MEDS: Amlodipine 10 MG TAB PO SCH (21:12)
[2023-06-07] MEDS: Metoprolol Tartrate 25 MG TAB PO SCH (21:12)
[2023-06-08] MEDS ORDERED: Milk Of Magnesia 30 ML UDCUP PO ONE (07:57)
[2023-06-08] MEDS: Famotidine 20 MG TAB PO SCH (08:49)
[2023-06-08] MEDS: Famotidine/PF 20 mg/2ml Vial SLOW IVP SCH (10:14)
[2023-06-08 11:25] VITALS: BP 130/84; TEMP 98.4
== END 2023-06-08 14:05 | disposition home or self-care (01) | DRG 331 ==
LOC: SURG A 06-04 05:46
PROVIDERS: ADMIT Surgery; ATTEND Surgery
PROC: 0D1N4Z4 Bypass Sigmoid Colon to Cutaneous, Percutaneous Endoscopic Approach (ICD-10-PCS; principal; 2023-06-04)
PROC: 0DSN4ZZ Reposition Sigmoid Colon, Percutaneous Endoscopic Approach (ICD-10-PCS; 2023-06-04)
PROC: 0DTP4ZZ Resection of Rectum, Percutaneous Endoscopic Approach (ICD-10-PCS; 2023-06-04)
PROC: 0DTN4ZZ Resection of Sigmoid Colon, Percutaneous Endoscopic Approach (ICD-10-PCS; 2023-06-04)
PROC: 0DTQ4ZZ Resection of Anus, Percutaneous Endoscopic Approach (ICD-10-PCS; 2023-06-04)
PROC: 8E0W4CZ Robotic Assisted Procedure of Trunk Region, Percutaneous Endoscopic Approach (ICD-10-PCS; 2023-06-04)
PROC: 3E033XZ Introduction of Vasopressor into Peripheral Vein, Percutaneous Approach (ICD-10-PCS; 2023-06-04)
DX: C20 Malignant neoplasm of rectum (principal); Z88.0 Allergy status to penicillin
CPT/HCPCS: 36415; 36416; 80048; 85025; 88307; 97139; J1100; J1170; J1650; J1885; J1956; J2250; J2370; J2405; J2704; J2795; J3010; J3480; J3490; S0020; S0028

== ENCOUNTER 2023-06-19 15:10 | Inpatient (IN) | payer OTHER ==
[~2023-06-19 15:10] MED LIST: Iopamidol-370 76% 500 ML MDV (1 ML CHARGE) ONE
[2023-06-19] MEDS ORDERED: Morphine 4 MG/ML VIAL ONE ×2 (15:32→21:06)
[2023-06-19] MEDS ORDERED: Ondansetron PF 4 MG/2 ML Vial ONE (15:32)
[2023-06-19 15:42] LABS: #Eosinphils 0.4 thou/uL (0.0-0.7); #Monocytes 0.7 thou/uL (0.11-0.59); #Neutrophils 5.7 thou/uL (1.40-6.50); %Basophils 0.4 % (0.0-1.0); %Eosinophils 5.5 % (0.0-10.0); %Lymphocytes 7.5 % (21.0-51.0); %Monocytes 9.4 % (0.0-10.0); %Neutrophils 76.7 % (42.0-75.0); Hematocrit 31.2 % (36.0-47.0); Hemoglobin 9.9 g/dL (12.0-16.0); Mean Corpuscular HGB CONC 31.7 g/dL (32.0-36.0); Mean Corpuscular Hemoglobin 27.4 pg (27.0-31.0); Mean Corpuscular Volume 86.4 fl (78.0-98.0); Mean Platelet Volume 10.4 fL (7.4-10.4); Platelet Count 417 10x3/uL (130-400); Red Blood Cell (RBC) Count 3.61 mill/uL (4.20-5.40); White Blood Cell (WBC) Count 7.5 10x3/uL (4.8-10.8)
[2023-06-19 16:06] LABS: ALT (SGPT) 170 U/L (8-55); AST (SGOT) 96 U/L (5-34); Albumin 3.1 g/dL (3.5-5.0); Alkaline Phosphatase 345 U/L (40-110); Anion Gap 15 mmol/L (10-20); BUN (Urea Nitrogen) 17 mg/dL (9.8-20.1); Bilirubin, Total 0.5 mg/dL (0.2-1.2); Calc. Creatinine Clearance 0 mL/min (70-130); Calcium 8.8 mg/dL (7.8-10.44); Carbon Dioxide 23 mmol/L (22-29); Chloride 103 mmol/L (98-107); Estimated GFR 105; Glucose 106 mg/dL (70-105); Potassium 3.8 mmol/L (3.5-5.1); Protein, Total 7.1 g/dL (6.0-8.3); Sodium 137 mmol/L (136-145)
[2023-06-19] MEDS ORDERED: Promethazine HCl 25 MG/ML VIAL IM PRN (22:19)
[2023-06-19] MEDS ORDERED: hydrALAZINE 20 MG/ML VIAL SLOW IVP PRN (22:19)
[2023-06-19] MEDS ORDERED: Ipratropium/Albuterol 3 ML NEB NEB PRN (22:19)
[2023-06-19] MEDS ORDERED: Dextrose 50% Abboject 50 ML SYRINGE SLOW IVP PRN (22:19)
[2023-06-19] MEDS ORDERED: Magnesium Citrate 300 ML BOT PO SCH (22:19)
[2023-06-19] MEDS ORDERED: Glucagon 1 MG/ML KIT IM PRN (22:19)
[2023-06-19] MEDS ORDERED: Dextrose 5% in Water 1,000 ML IV PRN (22:19)
[2023-06-19] MEDS ORDERED: Ondansetron PF 4 MG/2 ML Vial IVP PRN (22:19)
[2023-06-19] MEDS ORDERED: Amlodipine 10 MG TAB PO SCH (22:30)
[2023-06-19] MEDS ORDERED: Metoprolol Tartrate 25 MG TAB PO SCH (22:30)
[2023-06-19] MEDS: Famotidine 20 MG TAB PO SCH (22:46)
[2023-06-19] MEDS: HYDROcodone/Acetaminophen 10/325 mg Tablet PO PRN (22:47)
[2023-06-19] MEDS: Famotidine/PF 20 mg/2ml Vial SLOW IVP SCH (22:49)
[2023-06-19] MEDS: D5 1/2 NS w/20 mEq KCL 1,000 ML IV SCH (22:50)
[2023-06-20] MEDS: HYDROcodone/Acetaminophen 10/325 mg Tablet PO PRN ×3 (06:02→21:45)
[2023-06-20] MEDS: Famotidine/PF 20 mg/2ml Vial SLOW IVP SCH ×2 (08:59→21:32)
[2023-06-20] MEDS: Famotidine 20 MG TAB PO SCH ×2 (09:04→21:31)
[2023-06-20] MEDS: Morphine 4 MG/ML VIAL SLOW IVP PRN ×2 (09:04→13:19)
[2023-06-20] MEDS: D5 1/2 NS w/20 mEq KCL 1,000 ML IV SCH ×2 (09:04→16:46)
[2023-06-20 14:01] VITALS: BMI 30.2
[2023-06-20] MEDS: ALPRAZolam 0.5 MG TAB PO PRN ×2 (16:23→23:08)
[2023-06-20] MEDS: Amlodipine 10 MG TAB PO SCH (21:31)
[2023-06-20] MEDS: Metoprolol Tartrate 25 MG TAB PO SCH (21:31)
[2023-06-20] MEDS: Ketorolac Tromethamine 30 MG/ML VIAL IVP PRN (21:45)
[2023-06-21] MEDS: D5 1/2 NS w/20 mEq KCL 1,000 ML IV SCH ×3 (02:16→21:51)
[2023-06-21] MEDS: LevoFLOXacin 500 MG TAB PO SCH (06:17)
[2023-06-21] MEDS: Polyethylene Glycol 3350 17 GM Packet PO SCH (08:26)
[2023-06-21] MEDS: Famotidine 20 MG TAB PO SCH ×2 (08:26→21:44)
[2023-06-21] MEDS: Morphine 4 MG/ML VIAL SLOW IVP PRN ×4 (08:29→21:44)
[2023-06-21] MEDS: Famotidine/PF 20 mg/2ml Vial SLOW IVP SCH ×2 (10:47→21:45)
[2023-06-21] MEDS: Amlodipine 10 MG TAB PO SCH (21:44)
[2023-06-21] MEDS: Metoprolol Tartrate 25 MG TAB PO SCH (21:44)
[2023-06-21] MEDS: ALPRAZolam 0.5 MG TAB PO PRN (21:44)
[2023-06-22] MEDS: LevoFLOXacin 500 MG TAB PO SCH (05:54)
[2023-06-22] MEDS: HYDROcodone/Acetaminophen 10/325 mg Tablet PO PRN ×2 (05:58→15:17)
[2023-06-22] MEDS: D5 1/2 NS w/20 mEq KCL 1,000 ML IV SCH ×3 (06:01→09:00)
[2023-06-22] MEDS: Polyethylene Glycol 3350 17 GM Packet PO SCH (08:06)
[2023-06-22] MEDS: Famotidine/PF 20 mg/2ml Vial SLOW IVP SCH ×2 (08:07→20:25)
[2023-06-22] MEDS: Famotidine 20 MG TAB PO SCH ×2 (08:07→20:24)
[2023-06-22] MEDS: Morphine 4 MG/ML VIAL SLOW IVP PRN ×2 (08:57→15:17)
[2023-06-22] MEDS: Amlodipine 10 MG TAB PO SCH (20:24)
[2023-06-22] MEDS: Ketorolac Tromethamine 30 MG/ML VIAL IVP PRN (20:24)
[2023-06-22] MEDS: Metoprolol Tartrate 25 MG TAB PO SCH (20:24)
[2023-06-22] MEDS: ALPRAZolam 0.5 MG TAB PO PRN (20:28)
[2023-06-23] MEDS: Morphine 4 MG/ML VIAL SLOW IVP PRN ×6 (01:48→22:53)
[2023-06-23] MEDS: Acetaminophen 325 MG TAB PO PRN (05:16)
[2023-06-23] MEDS: LevoFLOXacin 500 MG TAB PO SCH (05:16)
[2023-06-23] MEDS: Famotidine 20 MG TAB PO SCH ×2 (09:02→20:50)
[2023-06-23] MEDS: Polyethylene Glycol 3350 17 GM Packet PO SCH ×2 (09:02→20:50)
[2023-06-23] MEDS: ALPRAZolam 0.5 MG TAB PO PRN ×2 (09:02→20:50)
[2023-06-23] MEDS: D5 1/2 NS w/20 mEq KCL 1,000 ML IV SCH (15:06)
[2023-06-23] MEDS: Famotidine/PF 20 mg/2ml Vial SLOW IVP SCH ×2 (18:13→20:50)
[2023-06-23] MEDS: Metoprolol Tartrate 25 MG TAB PO SCH (20:50)
[2023-06-23] MEDS: Amlodipine 10 MG TAB PO SCH (20:50)
[2023-06-23] MEDS: HYDROcodone/Acetaminophen 10/325 mg Tablet PO PRN (22:57)
[2023-06-24] MEDS: Morphine 4 MG/ML VIAL SLOW IVP PRN ×5 (05:13→21:13)
[2023-06-24] MEDS: LevoFLOXacin 500 MG TAB PO SCH (05:13)
[2023-06-24] MEDS: Famotidine 20 MG TAB PO SCH ×2 (10:34→21:19)
[2023-06-24] MEDS: Polyethylene Glycol 3350 17 GM Packet PO SCH ×2 (10:50→21:18)
[2023-06-24] MEDS: HYDROcodone/Acetaminophen 10/325 mg Tablet PO PRN ×2 (11:16→17:12)
[2023-06-24] MEDS ORDERED: Bisacodyl 5 MG TAB PO PRN (13:06)
[2023-06-24] MEDS ORDERED: Bisacodyl 5 MG TAB PO SCH (13:15)
[2023-06-24] MEDS: Famotidine/PF 20 mg/2ml Vial SLOW IVP SCH ×2 (19:03→22:24)
[2023-06-24] MEDS: D5 1/2 NS w/20 mEq KCL 1,000 ML IV SCH (19:42)
[2023-06-24] MEDS: Amlodipine 10 MG TAB PO SCH (21:13)
[2023-06-24] MEDS: ALPRAZolam 0.5 MG TAB PO PRN (21:13)
[2023-06-24] MEDS: Metoprolol Tartrate 25 MG TAB PO SCH (21:13)
[2023-06-25] MEDS: Morphine 4 MG/ML VIAL SLOW IVP PRN ×6 (00:02→21:05)
[2023-06-25] MEDS: LevoFLOXacin 500 MG TAB PO SCH (05:53)
[2023-06-25] MEDS: HYDROcodone/Acetaminophen 10/325 mg Tablet PO PRN ×2 (08:08→15:29)
[2023-06-25] MEDS: Famotidine 20 MG TAB PO SCH ×2 (08:08→20:04)
[2023-06-25] MEDS: Famotidine/PF 20 mg/2ml Vial SLOW IVP SCH ×2 (10:33→20:06)
[2023-06-25] MEDS: D5 1/2 NS w/20 mEq KCL 1,000 ML IV SCH (10:34)
[2023-06-25] MEDS: Polyethylene Glycol 3350 17 GM Packet PO SCH ×2 (10:38→20:04)
[2023-06-25] MEDS: ALPRAZolam 0.5 MG TAB PO PRN (10:46)
[2023-06-25] MEDS: Metoprolol Tartrate 25 MG TAB PO SCH (20:04)
[2023-06-25] MEDS: Amlodipine 10 MG TAB PO SCH (20:04)
[2023-06-26] MEDS: Morphine 4 MG/ML VIAL SLOW IVP PRN ×6 (00:42→23:05)
[2023-06-26] MEDS: Acetaminophen 325 MG TAB PO PRN ×2 (06:29→20:32)
[2023-06-26] MEDS: LevoFLOXacin 500 MG TAB PO SCH (06:29)
[2023-06-26] MEDS: Famotidine/PF 20 mg/2ml Vial SLOW IVP SCH ×2 (08:37→19:37)
[2023-06-26] MEDS: D5 1/2 NS w/20 mEq KCL 1,000 ML IV SCH (09:22)
[2023-06-26] MEDS: Famotidine 20 MG TAB PO SCH ×2 (09:22→19:37)
[2023-06-26] MEDS: Polyethylene Glycol 3350 17 GM Packet PO SCH ×2 (09:22→19:37)
[2023-06-26] MEDS ORDERED: Iopamidol-370 76% 500 ML MDV (1 ML CHARGE) ONE (12:26)
[2023-06-26] MEDS: HYDROcodone/Acetaminophen 10/325 mg Tablet PO PRN (12:54)
[2023-06-26] MEDS: Metoprolol Tartrate 25 MG TAB PO SCH (19:37)
[2023-06-26] MEDS: Amlodipine 10 MG TAB PO SCH (19:37)
[2023-06-26] MEDS: Zolpidem Tartrate 5 MG TAB PO PRN (23:05)
[2023-06-27] MEDS: Morphine 4 MG/ML VIAL SLOW IVP PRN ×4 (04:59→20:31)
[2023-06-27] MEDS: LevoFLOXacin 500 MG TAB PO SCH (04:59)
[2023-06-27] MEDS: Famotidine/PF 20 mg/2ml Vial SLOW IVP SCH (09:36)
[2023-06-27] MEDS: Polyethylene Glycol 3350 17 GM Packet PO SCH ×2 (09:46→20:33)
[2023-06-27] MEDS: Famotidine 20 MG TAB PO SCH ×2 (09:46→20:33)
[2023-06-27] MEDS: D5 1/2 NS w/20 mEq KCL 1,000 ML IV SCH (09:50)
[2023-06-27] MEDS ORDERED: Magnesium Citrate 300 ML BOT PO SCH (11:15)
[2023-06-27] MEDS: HYDROcodone/Acetaminophen 10/325 mg Tablet PO PRN ×2 (13:49→20:32)
[2023-06-27] MEDS: Metoprolol Tartrate 25 MG TAB PO SCH (20:33)
[2023-06-27] MEDS: Amlodipine 10 MG TAB PO SCH (20:33)
[2023-06-27] MEDS: ALPRAZolam 0.5 MG TAB PO PRN (22:04)
[2023-06-27] MEDS: Zolpidem Tartrate 5 MG TAB PO PRN (22:04)
[2023-06-28] MEDS: Famotidine/PF 20 mg/2ml Vial SLOW IVP SCH ×2 (01:28→07:39)
[2023-06-28] MEDS: HYDROcodone/Acetaminophen 10/325 mg Tablet PO PRN ×3 (02:17→14:04)
[2023-06-28] MEDS: Morphine 4 MG/ML VIAL SLOW IVP PRN ×3 (02:18→16:17)
[2023-06-28] MEDS: LevoFLOXacin 500 MG TAB PO SCH ×2 (05:21→06:15)
[2023-06-28] MEDS ORDERED: Midazolam HCl 2 mg/2 ml Vial ONE (07:26)
[2023-06-28] MEDS ORDERED: fentaNYL PF 100 MCG/2 ML SYRINGE ONE (07:27)
[2023-06-28] MEDS ORDERED: SUGAMMADEX SODIUM 200 MG/2 ML VIAL ONE (07:27)
[2023-06-28] MEDS: Polyethylene Glycol 3350 17 GM Packet PO SCH (07:39)
[2023-06-28] MEDS: Famotidine 20 MG TAB PO SCH (07:48)
[2023-06-28] MEDS ORDERED: Ondansetron PF 4 MG/2 ML Vial ONE (10:04)
[2023-06-28] MEDS ORDERED: Esmolol 100 MG/10 ML VIAL ONE (10:04)
[2023-06-28] MEDS ORDERED: PROPOFOL 200 MG/20 ML VIAL ONE (10:04)
[2023-06-28] MEDS ORDERED: Dexamethasone 20 MG/5 ML VIAL ONE (10:04)
[2023-06-28] MEDS ORDERED: PHENYLEPHRINE-NS 100 MCG/ML 10 ML SYRINGE ONE (10:04)
[2023-06-28] MEDS ORDERED: Ketorolac Tromethamine 30 MG/ML VIAL ONE (10:04)
[2023-06-28] MEDS ORDERED: Lidocaine 1% PF 5 ML VIAL ONE (10:04)
[2023-06-28] MEDS ORDERED: Rocuronium Bromide 10 MG/ML (10ML VIAL) ONE (10:04)
[2023-06-28] MEDS ORDERED: fentaNYL 50 mcg/mL 1 mL Vial ONE (11:01)
[2023-06-28] MEDS ORDERED: Ondansetron HCl/PF 4 MG/2 ML Vial IVP PRN (11:30)
[2023-06-28] MEDS ORDERED: Promethazine HCl 25 MG/ML VIAL IM/IV PRN (11:30)
[2023-06-28] MEDS ORDERED: Escitalopram Oxalate 10 mg Tablet PO SCH (13:00)
[2023-06-28] MEDS: D5 1/2 NS w/20 mEq KCL 1,000 ML IV SCH (14:14)
[2023-06-28 18:14] VITALS: TEMP 97.7
[2023-06-28 18:16] VITALS: BP 118/68
[2023-06-29] MEDS ORDERED: Escitalopram Oxalate 10 mg Tablet PO SCH (09:00)
== END 2023-06-28 18:27 | disposition home or self-care (01) | DRG 920 ==
LOC: ERS 15:10 → SURG A 17:43 → INTOOBSV 17:43 → OBSVTOIN 06-20 16:39
PROVIDERS: ADMIT Surgery; ATTEND Surgery
PROC: 0J9B0ZZ Drainage of Perineum Subcutaneous Tissue and Fascia, Open Approach (ICD-10-PCS; principal; 2023-06-28)
DX: T81.32XA Disruption of internal operation (surgical) wound, not elsewhere classified, initial encounter (principal); C20 Malignant neoplasm of rectum; T81.41XA Infection following a procedure, superficial incisional surgical site, initial encounter; E78.5 Hyperlipidemia, unspecified; F32.A Depression, unspecified; K59.00 Constipation, unspecified; Y83.8 Other surgical procedures as the cause of abnormal reaction of the patient, or of later complication, without mention of misadventure at the time of the procedure; F41.9 Anxiety disorder, unspecified; Z88.1 Allergy status to other antibiotic agents; Z88.0 Allergy status to penicillin; Z88.2 Allergy status to sulfonamides; Z93.3 Colostomy status
CPT/HCPCS: 74177; 80053; 85025; 96374; 96375; 96376; 97139; G0378; J1100; J1642; J1885; J2250; J2270; J2405; J2704; J3010; J3480; Q9967; S0028

== ENCOUNTER 2023-07-15 07:49 | Day surgery (SDC) | payer OTHER ==
[2023-07-15] MEDS ORDERED: Morphine 4 MG/ML VIAL ONE (09:20)
[2023-07-15] MEDS ORDERED: fentaNYL PF 100 MCG/2 ML SYRINGE ONE (11:04)
[2023-07-15] MEDS ORDERED: Midazolam HCl 2 mg/2 ml Vial ONE (11:32)
[2023-07-15] MEDS ORDERED: LevoFLOXacin 500 mg/D5W 100 ML BAG ONE (11:32)
[2023-07-15] MEDS ORDERED: Ketorolac Tromethamine 30 MG/ML VIAL ONE (11:50)
[2023-07-15] MEDS ORDERED: Lidocaine 1% PF 5 ML VIAL ONE (11:50)
[2023-07-15] MEDS ORDERED: PROPOFOL 200 MG/20 ML VIAL ONE (11:50)
[2023-07-15] MEDS ORDERED: PHENYLEPHRINE-NS 100 MCG/ML 10 ML SYRINGE ONE (11:50)
[2023-07-15] MEDS ORDERED: Ondansetron PF 4 MG/2 ML Vial ONE (11:50)
[2023-07-15] MEDS ORDERED: Dexamethasone 20 MG/5 ML VIAL ONE (11:50)
== END 2023-07-15 14:28 | disposition home or self-care (01) ==
LOC: ERS 07:49 → SDC 10:24
PROVIDERS: ATTEND Surgery
PROC: 0H99X0Z Drainage of Perineum Skin with Drainage Device, External Approach (ICD-10-PCS; principal; 2023-07-15)
DX: S31.502A Unspecified open wound of unspecified external genital organs, female, initial encounter (principal); C20 Malignant neoplasm of rectum; I10 Essential (primary) hypertension; F17.210 Nicotine dependence, cigarettes, uncomplicated; Z79.899 Other long term (current) drug therapy; Z86.73 Personal history of transient ischemic attack (TIA), and cerebral infarction without residual deficits; Z88.0 Allergy status to penicillin; Z88.1 Allergy status to other antibiotic agents; Z88.2 Allergy status to sulfonamides; X58.XXXA Exposure to other specified factors, initial encounter
CPT/HCPCS: 96374; J1100; J1885; J1956; J2250; J2270; J2405; J2704

== ENCOUNTER 2024-09-01 11:48 | Outpatient (CLI) | payer OTHER | END 2024-09-01 11:49 | disposition home or self-care (01) | LOC: BICCT 11:48 | PROVIDERS: ATTEND Internal Medicine | DX: C20 Malignant neoplasm of rectum (principal) | CPT/HCPCS: 36415; 71260; 74177; 82565 ==